=== PATIENT | male | born 1960 | race Caucasian/White ===

== ENCOUNTER → 2021-04-14 | Outpatient (CLI) | payer BC ==
[~2021-04-14] MED LIST: CYCLOBENZAPRINE10 MG PO; IBUPROFEN800 MG PO
== END ==
LOC: EMI 09:26
DX: M54.12 Radiculopathy, cervical region (principal); M47.812 Spondylosis without myelopathy or radiculopathy, cervical region
CPT/HCPCS: 72141

== ENCOUNTER 2021-04-20 10:27 | Emergency (ER) | payer BC ==
[2021-04-20 11:44] LABS: HEMOGLOBIN 18.9 gm/dl (14.0-17.5); RED BLOOD COUNT 6.21 M/UL (4.20-5.50)
[2021-04-20 12:00] LABS: BUN/CREATININE RATIO 17 (0-10)
[2021-04-20] MEDS ORDERED: IBUPROFEN800 MG PO (12:46)
[2021-04-20] MEDS ORDERED: CYCLOBENZAPRINE10 MG PO (12:46)
== END 2021-04-20 13:02 | disposition home or self-care (01) ==
LOC: ER1 10:27
PROVIDERS: Physician Assistant
DX: M50.10 Cervical disc disorder with radiculopathy, unspecified cervical region (principal)
CPT/HCPCS: 71045; 80053; 82550; 82553; 83874; 84484; 85025; 93005; 96374; 96375; 99284; J1170; J2405